=== PATIENT | male | born 1945 ===

== ENCOUNTER 2018-11-14 09:44 | Day surgery (SDC) | payer MEDICARE ==
[2017-08-16 09:09] VITALS: BMI 27.3
[2018-11-14] MEDS ORDERED: Lactated Ringer's 500 ML IV ONE (10:08)
[2018-11-14] MEDS ORDERED: Propofol 10 mg/ml Inj (20 ML) ONE (11:53)
[2018-11-14 12:01] VITALS: PULSE 98; TEMP 97
[2018-11-14 12:14] VITALS: BP 140/89; RESP 16; O2SAT 97
== END 2018-11-14 13:00 | disposition home or self-care (01) ==
LOC: H.ENDO 09:44
PROVIDERS: ATTEND Internal Medicine Gastroenterology
DX: R10.10 Upper abdominal pain, unspecified (principal); K31.89 Other diseases of stomach and duodenum; I25.10 Atherosclerotic heart disease of native coronary artery without angina pectoris; E78.5 Hyperlipidemia, unspecified; I10 Essential (primary) hypertension
CPT/HCPCS: 43239; 82948; 88305; 88342; J2001; J2704; J7120